=== PATIENT | male | born 1965 | race Caucasian/White ===

== ENCOUNTER → 2021-02-08 07:59 | Outpatient (CLI) | payer OTHER, SELFPAY ==
[2021-02-08 19:39] LABS: Add Manual Diff / Slide Review NO; Basophils Absolute Auto 0 /uL (0-100); Eosinophils Absolute Auto 100 /uL (0-450); Eosinophils Percent Auto 2.2 % (2-4); Hematocrit 45.8 % (41-53); Hemoglobin 15.4 g/dL (13.5-17.5); Lymphocytes Absolute Auto 1700 /uL (1100-4500); Mean Corpuscular HGB Conc 33.6 % (30-36); Mean Corpuscular Volume 95.2 fL (80-100); Monocytes Absolute Auto 500 /uL (0-900); Monocytes Percent Auto 11.2 % (3-14); Neutrophils Absolute Auto 2400 /uL (1500-7000); Neutrophils Percent Auto 50.6 % (50-75); Platelet Count 175 X10^3/uL (150-400); Red Blood Cell Count 4.81 X10^6/uL (4.5-5.9); Red Cell Distribution Width 12.7 % (11.6-14.8); White Blood Cell Count 4.8 X10^3/uL (4.5-11.0)
[2021-02-08 19:52] LABS: Alanine Aminotransferase 27 IU/L (<50); Albumin 4.4 g/dL (3.5-5.0); Albumin Globulin Ratio 1.7 (1.0-2.8); Alkaline Phosphatase 59 U/L (38-126); Aspartate Aminotransferase 37 IU/L (17-59); BUN Creatinine Ratio 16.5 (6-22); Bilirubin Total 0.8 mg/dL (0.2-1.3); Blood Urea Nitrogen 15 mg/dL (9-20); Calcium 9.7 mg/dL (8.4-10.2); Carbon Dioxide 31 mmol/L (22-32); Chloride 98 mmol/L (98-107); Cholesterol 263 mg/dL (140-199); Estimated Glomerular Filt Rate > 60.0 mL/min (>60); Globulin 2.6 g/dL (1.7-4.1); Glucose 96 mg/dL (70-100); HDL Cholesterol 70 mg/dL (40-60); HEMOLYSIS < 15 (0-50); Potassium 4.5 mmol/L (3.4-5.1); Sodium 137 mmol/L (137-145); Triglycerides 467 mg/dL (35-150)
[2021-02-08 20:21] LABS: Prostate Specific Antigen 0.964 ng/mL (0.10-4.00)
== END ==
PROVIDERS: PCP Family Medicine; Visit Provider Family Medicine
DX: I10 Essential (primary) hypertension (principal); M10.9 Gout, unspecified; N52.9 Male erectile dysfunction, unspecified
CPT/HCPCS: 80053; 80061; 84153; 84550; 85025

== ENCOUNTER → 2021-06-09 08:03 | Outpatient (CLI) | payer OTHER, SELFPAY ==
[2021-06-09 19:15] LABS: Add Manual Diff / Slide Review NO; Basophils Absolute Auto 0 /uL (0-100); Basophils Percent Auto 0.7 % (0-2); Eosinophils Absolute Auto 100 /uL (0-450); Eosinophils Percent Auto 1.9 % (2-4); Hematocrit 43.7 % (41-53); Hemoglobin 14.9 g/dL (13.5-17.5); Lymphocytes Absolute Auto 1200 /uL (1100-4500); Lymphocytes Percent Auto 26.6 % (25-40); Mean Corpuscular HGB Conc 34.2 % (30-36); Mean Corpuscular Hemoglobin 32.3 PG (26-34); Mean Corpuscular Volume 94.6 fL (80-100); Monocytes Absolute Auto 500 /uL (0-900); Monocytes Percent Auto 10.4 % (3-14); Neutrophils Absolute Auto 2600 /uL (1500-7000); Neutrophils Percent Auto 60.4 % (50-75); Platelet Count 175 X10^3/uL (150-400); Red Blood Cell Count 4.62 X10^6/uL (4.5-5.9); Red Cell Distribution Width 12.6 % (11.6-14.8); White Blood Cell Count 4.3 X10^3/uL (4.5-11.0)
[2021-06-09 19:25] LABS: Alanine Aminotransferase 30 IU/L (<50); Albumin 4.5 g/dL (3.5-5.0); Albumin Globulin Ratio 1.7 (1.0-2.8); Alkaline Phosphatase 45 U/L (38-126); Aspartate Aminotransferase 47 IU/L (17-59); BUN Creatinine Ratio 16.7 (6-22); Bilirubin Total 1.2 mg/dL (0.2-1.3); Blood Urea Nitrogen 16 mg/dL (9-20); Calcium 9.5 mg/dL (8.4-10.2); Carbon Dioxide 29 mmol/L (22-32); Chloride 100 mmol/L (98-107); Cholesterol 194 mg/dL (140-199); Estimated Glomerular Filt Rate > 60.0 mL/min (>60); Globulin 2.6 g/dL (1.7-4.1); Glucose 97 mg/dL (70-100); HDL Cholesterol 94 mg/dL (40-60); HEMOLYSIS 16 (0-50); LDL Cholesterol Calculated 77 mg/dL (<100); Potassium 4.4 mmol/L (3.4-5.1); Sodium 136 mmol/L (137-145); Total Protein 7.1 g/dL (6.3-8.2); Triglycerides 114 mg/dL (35-150); Uric Acid 5.7 mg/dL (3.5-8.5)
== END ==
PROVIDERS: PCP Family Medicine; Visit Provider Family Medicine
DX: Z00.00 Encounter for general adult medical examination without abnormal findings (principal); M10.9 Gout, unspecified; I10 Essential (primary) hypertension
CPT/HCPCS: 80053; 80061; 84550; 85025

== ENCOUNTER → 2022-01-23 14:13 | Outpatient (CLI) | payer OTHER, SELFPAY ==
[2022-01-23 16:16] LABS: COVID19 -Nasal RAPID Negative (Negative)
== END ==
PROVIDERS: PCP Family Medicine; Visit Provider Surgery
DX: Z20.822 Contact with and (suspected) exposure to COVID-19 (principal); Z01.812 Encounter for preprocedural laboratory examination
CPT/HCPCS: 87635

== ENCOUNTER 2022-01-24 10:19 | Day surgery (SDC) | payer OTHER, SELFPAY ==
[2022-01-24] VITALS (7 sets, daily range): BP systolic 115–138; BP diastolic 72–86; PULSE 54–67; RESP 13–18; TEMP 36.4–36.6; O2SAT 90–99; BMI 26.4
[2022-01-24] MEDS: LACTATED RINGERS 1,000 ML 100 ML IV (11:02)
--- NOTE | 2022-01-24 11:10 | PM.HP.1 ---
History of Present Illness History of Present Illness Date Patient Seen: 01/24/22 Time Patient Seen: 11:10 Chief complaint: [facility] [place] Narrative: 56-year-old man here for a elective open right inguinal and umbilical hernia repair. Please refer to the H&P from September 2021 for further detail. No interval changes in health. Patient History Medical History Eczema (~1989) Encounter for other administrative examinations Erectile dysfunction Gout (~1989) Plantar warts (~1979) Preventative health care Surgical History Anesthesia History of oral surgery (~01/2020) Family & Social History Family History Father Cancer History of heart disease Grandmother Cancer Grandfather History of heart disease Social History: household members significant other Tobacco & Substance use: Smoking Status Never smoker alcohol intake current alcohol intake frequency 3 or more drinks per day Substance Use Type does not use Meds Home Medications and Allergies Home Medications Medication Instructions Recorded Confirmed Type fenofibrate nanocrystallized 145 145 mg PO DAILY #90 tabs 02/10/21 09/29/21 Rx mg tablet (Tricor) losartan 25 mg tablet 25 mg PO DAILY #90 tabs 04/28/21 09/29/21 Rx allopurinol 300 mg tablet 300 mg PO DAILY #90 tabs 06/08/21 09/29/21 Rx sildenafil (pulm.hypertension) 20 20 mg PO ONCE PRN sexual activity 10/06/21 Rx mg tablet #30 tabs diazepam 10 mg tablet (Valium) 10 mg PO ONCE #1 tab 12/29/21 12/29/21 Rx acetaminophen 325 mg capsule 650 mg PO QID PRN pain #60 caps 01/24/22 Rx (Tylenol) docusate sodium 100 mg capsule 100 mg PO BID #30 caps 01/24/22 Rx (Colace) oxycodone 5 mg tablet 5 mg PO Q6H PRN pain #30 tabs 01/24/22 Rx Allergies Allergy/AdvReac Type Severity Reaction Status Date / Time indomethacin [From Tivorbex] AdvReac Mild weakness, Verified 01/24/22 10:56 shackiness Exam Vital Signs (past 8 hours): - 01/24/22 10:45 Temperature 97.5 F L Pulse Rate 54 L Respiratory Rate 18 Blood Pressure 138/86 Pulse Oximetry 99 Oxygen Delivery Method Room Air Oxygen Delivery Method Room Air Narrative Exam Narrative: General adult male alert oriented no acute distress Abdomen soft nontender nondistended. Right inguinal hernia marked with my initials. Umbilical hernia non reducible. Assessment & Plan Assessment & Plan narrative: 56-year-old man here for elective open right knee and umbilical hernia repair with mesh. However the operation was again discussed with the patient. Operative risks discussed include bleeding, infection, chronic pain, recurrence damage to surrounding structures. Questions have been answered. He he gives his verbal and written consent to proceed. Time Spent With Patient Critical Care time: I spent a total of [] minutes of critical care time on this patient's care today; this time is exclusive of procedural time.
--- NOTE | 2022-01-24 11:18 | P.OP_ITS ---
Operative Date/Time/Diagnoses Date of procedure: 01/24/22 Time of procedure: 11:18 Pre-op diagnosis: Right inguinal and umbilical hernia Post-op diagnosis: same Procedure & Clinicians Procedure: Open right inguinal hernia repair with mesh Umbilical hernia repair with mesh Same procedure as scheduled: Yes Indications: Symptomatic right inguinal and umbilical hernia Surgeon: Mookie Smith Yes if Unassisted: Yes Anesthesia Type: General Operative Notes Findings: 2 cm umbilical defect containing omentum right inguinal-direct floor defect small cord lipoma no indirect hernia Specimen(s): none sent Estimated Blood Loss (mL): 20 Procedure in detail: The patient was placed supine on the table and bilateral lower extremity compression devices were applied. Anesthesia was induced they were intubated with an LMA and received Ancef. A time-out was performed. They were prepped and draped in sterile fashion. The right external inguinal ring and the anterior superior iliac crest were identified and marked. 1 finger breath above the inguinal ligament the skin was infiltrated with 0.25% bupivacaine. The skin incision was made, the subcutaneous tissues were divided with electrocautery exposing the external oblique aponeurosis which was then opened along the direction of its fibers. Using blunt dissection the internal oblique aporneurosis was from the external oblique upper leaflet. The cord was carefully dissected away from the inguinal canal adjacent to the pubic tuber oyl. The cord including the vas deferens, testicular bloody supply, ilioguinal and genital nerve were encircled with a [place] drain. A direct floor defect was identified and it was reduced into the abdomen and the internal oblique aporneuorsis was approximated to the inguinal ligament with Ethibond suture to reapproximate the floor.. The cremasteric fibers surrounding the cord were divided adjacent to the internal ring. The vas deferens and the testicular vessels were preserved and protected. The cord contents were carefully explored. There was a small cord lipoma which was resected. There was no indirect hernia. A 7x 15 cm lightweight Bard Pro Loop hernia mesh was anchored to the insertion of the rectus muscle at the pubic tubercle such that there was approximately 2 cm of tubercle overlap with Ethibond. The inferior edge of the mesh was secured to the shelving edge of the inguinal ligament using Ethibond. Interrupted 3 0 Vicryl suture was used to anchor the superior aspect of the mesh to the conjoined tendon in several places. The tails were then reapproximated loosely around the spermatic cord. The tails of the mesh were then tucked under the external oblique aponeurosis. The repair was checked for hemostasis. The wound was irrigated with sterile saline. The external oblique aponeurosis was reapproximated in a running fashion using 3 0 Vicryl. The subcutaneous tissues were reapproximated with 3 0 Vicryl skin closed with 4 0 Monocryl followed by the application of Dermabond. A curvilinear incision was made inferior to the umbilicus. The subcutaneous tissues were divided. The umbilical hernia was identified and the hernia sac was dissected off the umbilical skin and circumferentially off of the fascia defect. The hernia sac was sharply opened and contained viable omentum. The omentum was reduced back into the abdomen. Using blunt dissection I carefully carefully freed the hernia sac from beneath the fascia defect in order to accomodate the mesh. The fascia defect was 2 cm in maximal diameter. A Bard Ventralex ST hernia patch 4 cm was inserted beneath the fascia defect and above the peritoneum in a sublay position. The mesh was anchored in multiple locations using Ethibond suture to the fascia and the fascial defect was closed over the mesh. The umbilical skin was tacked to the subcutaneous tissues and then the remainder of the subcutaneous tissues were reapproximated using 3 0 Vicry,l skin closed with 4 0 Monocryl followed by the application of Dermabond and Steri- Strips. Sponge instrument count at the end of the operation was correct. Patient tolerated procedure well was extubated and transferred to postoperative care unit in stable condition. Complications: none Post-operative Condition: stable Disposition: same day surgery
[2022-01-24] MEDS: CEFAZOLIN 2 GM/100 ML PREMIX 100 ML IV (11:29)
--- NOTE | 2022-01-24 11:41 | SUR.OPER ---
Supine on padded OR bed, head on pillow, arms secured on padded arm boards at <90 degrees abduction, legs uncrossed, safety belt at thigh.
[2022-01-24] MEDS: BUPIVACAINE 0.25% (PF) VIAL 30 ML INJ (11:52)
[2022-01-24] MEDS: OXYCODONE/ACETAMINOPHEN 5/325 TABLET 1 TAB PO (13:41)
== END 2022-01-24 14:00 | disposition home or self-care (01) ==
PROVIDERS: PCP Family Medicine; Referring Provider Surgery; Visit Provider Surgery
PROC: (CPT 49505; principal; 2022-01-24 11:45)
PROC: (CPT 49505; 2022-01-24 11:45)
DX: K40.90 Unilateral inguinal hernia, without obstruction or gangrene, not specified as recurrent (principal); K42.9 Umbilical hernia without obstruction or gangrene; D17.6 Benign lipomatous neoplasm of spermatic cord
CPT/HCPCS: 49505; 49585; J0690; J1100; J1885; J2250; J2405; J2704; J3010

== ENCOUNTER → 2022-03-15 09:01 | Outpatient (CLI) | payer OTHER, SELFPAY ==
[2022-03-15 10:20] LABS: Alanine Aminotransferase 26 IU/L (<50); Albumin 4.5 g/dL (3.5-5.0); Albumin Globulin Ratio 1.7 (1.0-2.8); Alkaline Phosphatase 42 U/L (38-126); Aspartate Aminotransferase 31 IU/L (17-59); BUN Creatinine Ratio 17.9 (6-22); Bilirubin Total 0.9 mg/dL (0.2-1.3); Blood Urea Nitrogen 19 mg/dL (9-20); Calcium 9.6 mg/dL (8.4-10.2); Carbon Dioxide 27 mmol/L (22-32); Chloride 101 mmol/L (98-107); Cholesterol 201 mg/dL (140-199); Estimated Glomerular Filt Rate > 60 mL/min (>60); Globulin 2.6 g/dL (1.7-4.1); Glucose 94 mg/dL (70-100); HDL Cholesterol 94 mg/dL (40-60); HEMOLYSIS < 15 (0-50); LDL Cholesterol Calculated 90 mg/dL (<100); Potassium 4.8 mmol/L (3.4-5.1); Sodium 135 mmol/L (137-145); Total Protein 7.1 g/dL (6.3-8.2); Triglycerides 87 mg/dL (35-150)
== END ==
PROVIDERS: PCP Family Medicine; Referring Provider Family Medicine; Visit Provider Family Medicine
DX: I10 Essential (primary) hypertension (principal); Z00.00 Encounter for general adult medical examination without abnormal findings
CPT/HCPCS: 36415; 80053; 80061

== ENCOUNTER → 2022-07-26 09:18 | Outpatient (CLI) | payer OTHER, SELFPAY ==
[2022-07-26 19:40] LABS: Alanine Aminotransferase 39 IU/L (<50); Albumin 4.4 g/dL (3.5-5.0); Albumin Globulin Ratio 1.8 (1.0-2.8); Alkaline Phosphatase 50 U/L (38-126); Aspartate Aminotransferase 51 IU/L (17-59); BUN Creatinine Ratio 16.3 (6-22); Bilirubin Total 0.9 mg/dL (0.2-1.3); Blood Urea Nitrogen 17 mg/dL (9-20); Calcium 9.6 mg/dL (8.4-10.2); Carbon Dioxide 28 mmol/L (22-32); Chloride 102 mmol/L (98-107); Cholesterol 191 mg/dL (140-199); Estimated Glomerular Filt Rate > 60 mL/min (>60); Globulin 2.4 g/dL (1.7-4.1); Glucose 101 mg/dL (70-100); HDL Cholesterol 93 mg/dL (40-60); HEMOLYSIS < 15 (0-50); LDL Cholesterol Calculated 82 mg/dL (<100); Potassium 4.2 mmol/L (3.4-5.1); Sodium 136 mmol/L (137-145); Total Protein 6.8 g/dL (6.3-8.2); Triglycerides 80 mg/dL (35-150); Uric Acid 4.3 mg/dL (3.5-8.5)
[2022-07-26 19:41] LABS: Add Manual Diff / Slide Review NO; Basophils Absolute Auto 0 /uL (0-100); Basophils Percent Auto 0.7 % (0-2); Eosinophils Absolute Auto 100 /uL (0-450); Eosinophils Percent Auto 1.7 % (2-4); Hematocrit 43.4 % (41-53); Hemoglobin 14.8 g/dL (13.5-17.5); Lymphocytes Absolute Auto 1200 /uL (1100-4500); Lymphocytes Percent Auto 30.1 % (25-40); Mean Corpuscular HGB Conc 34.1 % (30-36); Mean Corpuscular Hemoglobin 31.9 PG (26-34); Mean Corpuscular Volume 93.7 fL (80-100); Monocytes Absolute Auto 500 /uL (0-900); Monocytes Percent Auto 11.9 % (3-14); Neutrophils Absolute Auto 2200 /uL (1500-7000); Neutrophils Percent Auto 55.6 % (50-75); Platelet Count 184 X10^3/uL (150-400); Red Blood Cell Count 4.63 X10^6/uL (4.5-5.9); Red Cell Distribution Width 13.2 % (11.6-14.8)
[2022-07-26 20:13] LABS: Prostate Specific Antigen 0.821 ng/mL (0.10-4.00)
== END ==
PROVIDERS: PCP Family Medicine; Visit Provider Family Medicine
DX: E78.1 Pure hyperglyceridemia (principal); I10 Essential (primary) hypertension; M1A.09X0 Idiopathic chronic gout, multiple sites, without tophus (tophi)
CPT/HCPCS: 80053; 80061; 84153; 84550; 85025

== ENCOUNTER 2022-10-05 09:01 | Day surgery (SDC) | payer OTHER, SELFPAY ==
--- NOTE | 2022-10-05 | PATH_ITS ---
[facility] Accession Number: [id number] No. of containers..02 Tissue . 01 Material submitted: . PART A: colon - ASCENDING POLYP PART B: colon - TRANSVERSE POLYP . 01 Diagnosis: A. Ascending Colon, Polyp: Tubular adenoma. . B. Transverse Colon, Polyp: Tubular adenoma. [facility] 10/15/2022 1133 Local . 01 Electronically signed: . Mariah Alfaro MD, Pathologist NPI- [id number] . 01 Gross description: . Part A: ASCENDING POLYP: Received in formalin is 1 fragment(s) of lovett, soft tissue measuring 0.4 x 0.3 x 0.2 cm submitted entirely in 1 cassette(s) Part B: TRANSVERSE POLYP: Received in formalin are 3 fragment(s) of lovett, soft tissue measuring 0.1 x 0.1 x 0.1 cm to 0.3 x 0.1 x 0.1 cm submitted entirely in 1 cassette(s) /[facility] 10/11/2022 0105 Local . 01 Pathologist provided ICD-10: D12.2, D12.3 . 01 CPT . 527216, 256877 Specimen Comment: A courtesy copy of this report has been sent to [facility] Pathology Performed at: 01 [facility] [address], [place], [place] [id number] MD Edilson Mcclure MD Phone: [phone]
[2022-10-05 09:19] VITALS: BP 145/81; PULSE 55; RESP 16; TEMP 36.3; O2SAT 99; BMI 27.0
[2022-10-05] MEDS: LACTATED RINGERS 1,000 ML 42 ML IV (09:34)
--- NOTE | 2022-10-05 10:52 | PM.HP.1 ---
History of Present Illness History of Present Illness Date Patient Seen: 10/05/22 Time Patient Seen: 10:53 [place] complaint[place] [facility] [place]ative: 57-year-old male presents today for a screening colonoscopy. His maternal grandfather mother did in her 70s of colon cancer. Has had a colonoscopy previously at age of approximately 36 years because of bleeding. The determination was that the bleeding was from an internal hemorrhoid which she still has. He notes that this hemorrhoid seems to ?flare up? when he ?eats poorly? for him flaring up generally entail some bleeding with spotting and blood on the toilet paper. He has noted some increase in episodes of diarrhea in the last year he wonders if he is developing an allergy to eggs. Mother has this allergy and when she eats eggs she also has diarrhea. He notices that these episodes do tend to correlate with the morning and often seem to have some relationship with his consumption. Overall he has no questions or concerns and would like to proceed with a screening colonoscopy today [facility] Medical History Eczema (~1989) Encounter for other administrative examinations Erectile dysfunction Gout (~1989) Hypertriglyceridemia Plantar warts (~1979) Preventative health care Well adult exam Surgical History Anesthesia History of oral surgery (~01/2020) Family History Father Cancer History of heart disease Grandmother Cancer Grandfather History of heart disease Social History household members: significant other Smoking Status: Never smoker alcohol intake: current Meds Home Medications and Allergies Home Medications Medication Instructions Recorded Confirmed Type sildenafil (pulm.hypertension) 20 20 mg PO ONCE PRN sexual activity 03/06/22 10/05/22 Rx mg tablet #30 tabs fenofibrate nanocrystallized 145 145 mg PO DAILY #90 tabs 03/14/22 10/05/22 Rx mg tablet (Tricor) allopurinol 300 mg tablet 300 mg PO DAILY #90 tabs 03/20/22 10/05/22 Rx losartan 50 mg tablet 50 mg PO DAILY #90 tabs 04/16/22 10/05/22 Rx Allergies Allergy/AdvReac Type Severity Reaction Status Date / Time indomethacin [From Tivorbex] AdvReac Mild weakness, Verified 10/05/22 09:16 shackiness Exam Vital Signs (past 8 hours): - 10/05/22 09:19 Temperature 97.3 F L Pulse Rate 55 L Respiratory Rate 16 Blood Pressure 145/81 H Pulse Oximetry 99 Oxygen Delivery Method Room Air Oxygen Delivery Method Room Air Const General: cooperative, healthy appearing and comfortable Nutritional Appearance: overweight Orientation: alert, awake and oriented x3 HENMT Head: normal to inspection Eyes General: appearance normal, both eyes and all related structures Chest Chest: normal inspection of the chest and normal palpation of entire chest wall Resp Effort & Inspection: normal respiratory effort and able to speak in complete sentences Cardio Pulses: radial pulses present GI Palpation: soft and No tender Assessment & Plan Assessment and plan (1) Family history of colon cancer: Status: Acute Assessment & Plan narrative: Presents today for screening colonoscopy I discussed the risks benefits and alternatives including but not limited to perforation of the colon and an incomplete exam he fully understands these risks and would like to proceed.
[2022-10-05 11:27] VITALS: BP 115/76; PULSE 93; RESP 15; TEMP 37.1; O2SAT 93
[2022-10-05 11:32] VITALS: BP 132/79; PULSE 78; RESP 16; O2SAT 95
[2022-10-05 11:38] VITALS: BP 118/81; PULSE 73; RESP 14; O2SAT 95
--- NOTE | 2022-10-05 11:43 | P.OP.COLON_ITS ---
Operative Date/Time/Diagnoses Date of procedure: 10/05/22 Time of procedure: 11:44 Pre-op diagnosis: Colon cancer screening. Maternal grandmother from colon cancer in her 70s. Bleeding from internal hemorrhoid in the history Post-op diagnosis: same Procedure & Clinicians Study performed: Colonoscopy and biopsy Same procedure as scheduled: Yes Indications: Colon cancer screening. Maternal grandmother from colon cancer in her 70s. Bleeding from internal hemorrhoid in the history Surgeon: Carmela Riggins Procedure Notes Procedure in detail: Patient was taken to the endoscopy suite and placed in a left lateral decubitus position. A time-out was performed. With the help of anesthesiologist conscious sedation was induced and monitored throughout the case. A digital rectal exam was performed and there were no masses or strictures. The colonoscope was introduced into the anal canal and advanced through to the cecum. A photograph of the appendiceal orifice was obtained. The bowel prep was good [place] bowel prep score of 2. There were a lot of gas bubbles which were cleared with water, and the exam was good. The scope was then withdrawn for a total of 12 minutes and there was 1 small polyp in the ascending colon th at was photographed and removed with the biopsy forceps there was an additional small polyp in the transverse colon which was removed with the biopsy forceps and photographed as well. The scope was then retroflexed and a photograph of the internal hemorrhoidal piles was obtained. There was 1 internal hemorrhoid pile that had sort of prominent appearance. There were a few scattered sigmoid diverticula within normal limits. Specimen(s): other (1. Ascending colon polyp 2. Transverse colon polyp) Post-procedure Plan for aftercare: With a family history of colon cancer I recommend a 5 year follow-up exam. I do recommend a fiber supplement especially given the history of hemorrhoids as well as the polyps that were seen today.
[2022-10-05 11:45] VITALS: BP 119/83; PULSE 68; RESP 14; O2SAT 98
== END 2022-10-05 12:00 | disposition home or self-care (01) ==
PROVIDERS: PCP Family Medicine; Referring Provider Surgery; Visit Provider Surgery
PROC: 0DJD8ZZ Inspection of Lower Intestinal Tract, Via Natural or Artificial Opening Endoscopic (ICD-10-PCS; CPT 45378; principal; 2022-10-05 10:00)
DX: Z12.11 Encounter for screening for malignant neoplasm of colon (principal); K64.0 First degree hemorrhoids; K57.30 Diverticulosis of large intestine without perforation or abscess without bleeding; D12.2 Benign neoplasm of ascending colon; D12.3 Benign neoplasm of transverse colon
CPT/HCPCS: 45380; J2704

== ENCOUNTER → 2023-01-02 10:40 | Outpatient (CLI) | payer OTHER, SELFPAY ==
--- NOTE | 2023-01-03 01:44 | DI.NM.S_ITS ---
DATE OF SERVICE: 01/02/2023 PROCEDURE PERFORMED: Exercise treadmill stress and rest myocardial perfusion imaging with gating to assess ejection fraction and regional wall motion. ORDERING PROVIDER: Dr. Esa Tamayo. INDICATIONS: The patient is a 57-year-old male with paroxysmal tachycardia and arm pain. CARDIAC STRESS: The patient was able to exercise for 8 minutes and 1 second on a standard Daniele protocol suggesting mildly impaired exercise capacity with an CHARLEE of +14%. He had a normal heart rate and blood pressure response to exercise, achieving a maximum heart rate of 166 BPM (101% of his predicted maximum). He had no chest discomfort or other anginal symptoms. His resting ECG is normal and there are no significant ST-segment shifts or arrhythmias with stress. At 6 minutes and 35 seconds of exercise at a heart rate of 160 BPM, 25.4 millicuries of technetium-99m Myoview was injected and he was imaged 15 minutes later using a gated SPECT acquisition protocol. Earlier in the day while at rest, he had been injected with 11.7 millicuries of technetium-99m Myoview and was imaged 15 minutes later, again using a gated SPECT acquisition protocol. FINDINGS: 1. Raw data: There is fair myocardial tracer uptake but with mild subdiaphragmatic tracer activity noted on the resting images adjacent to the inferior wall that affect the interpretation. The lung/heart ratio is normal at 0.34 with a normal TID ratio of 0.71. 2. Quantitated gated SPECT: Post-stress ejection fraction is estimated at 71% without any focal wall motion abnormality and specifically the inferior wall appears to have normal contractility. The resting ejection fraction is estimated at 65% although visually appears quite similar to that of the post-stress images. The resting end-diastolic volume is mildly increased at 137 mL. 3. Myocardial perfusion imaging: Post-stress supine images show a mild perfusion defect throughout the inferior wall in a pattern that would be consistent with diaphragmatic attenuation, supported by its resolution on the prone images. The resting images are somewhat corrupted by subdiaphragmatic tracer activity adjacent to the inferior wall but the inferior defect remains present, likely unchanged. IMPRESSION: 1. Probable normal myocardial perfusion study. 2. Predominantly fixed inferior wall perfusion defect that resolves on prone imaging, most consistent with diaphragmatic attenuation. There is no compelling evidence for any significant myocardial ischemia or infarction. 3. Normal left ventricular systolic function with mildly increased left ventricular volumes. 4. Mildly reduced exercise capacity without angina or ECG evidence of ischemia. No arrhythmias were seen. Ovidio Leonard - RIVKA/jim/CAROLIN doc#: [id number]/job#: [id number] dd: 01/02/2023 16:19:00 dt: 01/03/2023 01:30:00 DICTATING MD/COPIES TO: Esa Horn MD; Esa Tamayo MD COPIES MNE: JAMILAH;
== END ==
PROVIDERS: PCP Family Medicine; Referring Provider Family Medicine; Visit Provider Family Medicine
DX: I47.9 Paroxysmal tachycardia, unspecified (principal)
CPT/HCPCS: 78452; 93017; A9502

== ENCOUNTER → 2023-07-02 09:05 | Outpatient (CLI) | payer OTHER, SELFPAY ==
[2023-07-02 19:17] LABS: Add Manual Diff / Slide Review NO; Basophils Absolute Auto 0 /uL (0-100); Basophils Percent Auto 0.5 % (0-2); Eosinophils Absolute Auto 100 /uL (0-450); Eosinophils Percent Auto 1.5 % (2-4); Hematocrit 38.3 % (41-53); Hemoglobin 13.2 g/dL (13.5-17.5); Lymphocytes Absolute Auto 1200 /uL (1100-4500); Lymphocytes Percent Auto 15.2 % (25-40); Mean Corpuscular HGB Conc 34.3 % (30-36); Mean Corpuscular Hemoglobin 32.1 PG (26-34); Mean Corpuscular Volume 93.5 fL (80-100); Monocytes Absolute Auto 700 /uL (0-900); Monocytes Percent Auto 8.9 % (3-14); Neutrophils Absolute Auto 5600 /uL (1500-7000); Neutrophils Percent Auto 73.9 % (50-75); Platelet Count 277 X10^3/uL (150-400); Red Cell Distribution Width 12.4 % (11.6-14.8); White Blood Cell Count 7.6 X10^3/uL (4.5-11.0)
[2023-07-02 19:25] LABS: Alanine Aminotransferase 22 IU/L (<50); Albumin 4.3 g/dL (3.5-5.0); Albumin Globulin Ratio 1.9 (1.0-2.8); Alkaline Phosphatase 49 U/L (38-126); Aspartate Aminotransferase 35 IU/L (17-59); Bilirubin Total 0.8 mg/dL (0.2-1.3); Blood Urea Nitrogen 14 mg/dL (9-20); Calcium 9.8 mg/dL (8.4-10.2); Carbon Dioxide 27 mmol/L (22-32); Chloride 101 mmol/L (98-107); Cholesterol 178 mg/dL (140-199); Estimated Glomerular Filt Rate > 60 mL/min (>60); Globulin 2.3 g/dL (1.7-4.1); Glucose 97 mg/dL (70-100); HDL Cholesterol 68 mg/dL (40-60); HEMOLYSIS < 15 (0-50); LDL Cholesterol Calculated 93 mg/dL (<100); Potassium 4.2 mmol/L (3.4-5.1); Sodium 135 mmol/L (137-145); Total Protein 6.6 g/dL (6.3-8.2); Triglycerides 84 mg/dL (35-150)
[2023-07-02 19:26] LABS: Troponin I < 0.012 ng/mL (0.01-0.034)
[2023-07-02 19:52] LABS: TSH w/ Reflex to FT4 0.81 uIU/mL (0.47-4.68)
== END ==
PROVIDERS: PCP Family Medicine; Visit Provider Family Medicine
DX: I47.9 Paroxysmal tachycardia, unspecified (principal); E78.1 Pure hyperglyceridemia; I10 Essential (primary) hypertension
CPT/HCPCS: 80053; 80061; 84443; 84484; 85025

== ENCOUNTER → 2023-11-11 09:55 | Outpatient (CLI) | payer BC, SELFPAY ==
[2023-11-11 20:23] LABS: Reticulocyte Count, Percent 1.7 % (0.9-2.6)
[2023-11-11 20:30] LABS: Add Manual Diff / Slide Review NO; Basophils Absolute Auto 0 /uL (0-100); Basophils Percent Auto 0.8 % (0-2); Eosinophils Absolute Auto 100 /uL (0-450); Eosinophils Percent Auto 1.4 % (2-4); Hematocrit 41.4 % (41-53); Lymphocytes Absolute Auto 800 /uL (1100-4500); Mean Corpuscular HGB Conc 33.8 % (30-36); Mean Corpuscular Hemoglobin 31.6 PG (26-34); Mean Corpuscular Volume 93.6 fL (80-100); Monocytes Absolute Auto 300 /uL (0-900); Monocytes Percent Auto 5.6 % (3-14); Neutrophils Absolute Auto 4700 /uL (1500-7000); Neutrophils Percent Auto 78.2 % (50-75); Platelet Count 282 X10^3/uL (150-400); Red Blood Cell Count 4.42 X10^6/uL (4.5-5.9); Red Cell Distribution Width 12.6 % (11.6-14.8); White Blood Cell Count 6.1 X10^3/uL (4.5-11.0)
[2023-11-11 20:34] LABS: HEMOLYSIS < 15 (0-50); Iron 58 ug/dL (49-181)
[2023-11-11 20:43] LABS: Alanine Aminotransferase 13 IU/L (<50); Albumin 3.9 g/dL (3.5-5.0); Albumin Globulin Ratio 1.4 (1.0-2.8); Alkaline Phosphatase 51 U/L (38-126); Aspartate Aminotransferase 26 IU/L (17-59); BUN Creatinine Ratio 15.1 (6-22); Bilirubin Total 0.8 mg/dL (0.2-1.3); Blood Urea Nitrogen 16 mg/dL (9-20); C-Reactive Protein Quant 7.7 mg/dL (<1.0); Carbon Dioxide 27 mmol/L (22-32); Chloride 103 mmol/L (98-107); Cholesterol 146 mg/dL (140-199); Estimated Glomerular Filt Rate > 60 mL/min (>60); Globulin 2.7 g/dL (1.7-4.1); Glucose 108 mg/dL (70-100); HDL Cholesterol 78 mg/dL (40-60); HEMOLYSIS 25 (0-50); LDL Cholesterol Calculated 53 mg/dL (<100); Phosphorous 3.3 mg/dL (2.5-4.5); Potassium 4.2 mmol/L (3.4-5.1); Sodium 137 mmol/L (137-145); Total Protein 6.6 g/dL (6.3-8.2); Transferrin 228 mg/dL (206-381); Triglycerides 73 mg/dL (35-150)
[2023-11-11 20:54] LABS: Percent Iron Saturation 20 % (20-50); Total Iron Binding Capacity 287 ug/dL (261-462)
[2023-11-11 21:13] LABS: Cortisol Random 12.9 ug/dL; Prostate Specific Antigen Scrn 1.37 ng/mL (0.1-4.0)
[2023-11-11 21:17] LABS: Ferritin 272 ng/mL (18-464); Testosterone 288 ng/dL (71.8-623)
[2023-11-11 21:26] LABS: Vitamin B12 334 pg/mL (239-931)
[2023-11-11 21:41] LABS: Erythrocyte Sedimentation Rate 32 MM/HR (0-15)
== END ==
PROVIDERS: PCP Family Medicine; Visit Provider Family Medicine
DX: S22.000A Wedge compression fracture of unspecified thoracic vertebra, initial encounter for closed fracture (principal); D64.9 Anemia, unspecified; E78.1 Pure hyperglyceridemia; I10 Essential (primary) hypertension; Z12.5 Encounter for screening for malignant neoplasm of prostate
CPT/HCPCS: 80053; 80061; 82306; 82310; 82533; 82607; 82728; 82784; 83540; 83550; 83970; 84100; 84155; 84165; 84403; 84443; 85025; 85045; 85651; 86140; 86334; G0103

== ENCOUNTER → 2023-11-14 10:54 | Outpatient (CLI) | payer BC, SELFPAY ==
--- NOTE | 2023-11-14 10:57 | DI.MRI.S_ITS ---
PROCEDURE: MR THORACIC SPINE WO/W CON INDICATIONS: compression fractures thoracic spine -- eval for mets, infec TECHNIQUE: Noncontrast sagittal T1 spin echo and T2 fast spin echo, sagittal STIR, axial T1 and T2 fast spin echo through the thoracic spine. After the administration of contrast, axial and sagittal T1 spin echo with fat saturation through the thoracic spine. COMPARISON: [facility] ([place]), CR, XR CHEST 2V, 11/05/2023, 14:03. FINDINGS: Image quality: Excellent. Alignment and curvature: There is normal bony alignment. Marrow: Hemangioma in the T12 vertebral body. Anterior wedging of the T7, T8, T9 and T10 vertebral bodies which could be physiologic or related to chronic mild anterior column compression fractures. No acute vertebral body compression fractures. Spinal cord: Visualized spinal cord is of normal signal and size, without abnormal enhancement. Paraspinous soft tissues: No paravertebral masses or abnormal enhancement. Moderate-sized right pleural effusion. Partially visualized right renal cyst. Miscellaneous: Mild degenerative disc changes and facet arthropathy throughout the thoracic spine. No severe central canal stenosis. No severe neural foraminal narrowing. No neural compression. IMPRESSION: No acute vertebral body compression fracture. No evidence of metastatic disease. No evidence of discitis-osteomyelitis. Moderate-sized right pleural effusion. Dictated by: Fany Castillo MD, PhD on 11/14/2023 at 12:41 Approved by: Fany Castillo MD, PhD on 11/14/2023 at 12:48
--- NOTE | 2023-11-14 10:57 | DI.MRI.S_ITS ---
PROCEDURE: MR LUMBAR SPINE WO/W CON INDICATIONS: compression fractures thoracic spine -- eval for mets, infec TECHNIQUE: Noncontrast sagittal T1 spin echo and T2 fast spin echo, sagittal STIR, axial T1 and T2 fast spin echo through the lumbar spine. In cases with scoliosis, additional coronal T2 fast spin echo may be performed. After the administration of contrast, sagittal and axial T1 spin echo with fat saturation through the lumbar spine. COMPARISON: None. FINDINGS: Image quality: Excellent. Alignment and curvature: There is mild, approximately 7 millimeters of L5-S1 anterolisthesis secondary to L5 pars interarticularis defects. Marrow: Modic type 2 reactive endplate changes adjacent to the L5-S1 disc. Hemangioma in the T12 vertebral body. No acute vertebral body compression fractures. No suspicious marrow enhancement. Spinal cord: Conus medullaris terminates at the L1 level. Visualized spinal cord demonstrates normal signal, without suspicious enhancement. Paraspinous soft tissues: No paravertebral masses or abnormal enhancement. T12-L1: Normal appearance. L1-L2: Normal appearance. L2-L3: Normal appearance. L3-L4: Normal appearance. L4-L5: Normal appearance. L5-S1: Loss of disc signal and slight loss of disc height. Mild, diffuse disc bulge. [id number] bilateral facet hypertrophy. No central stenosis. Mild bilateral neural foraminal narrowing. No neural compression. Posterior disc annulus fissures. IMPRESSION: No vertebral body compression fracture. No discitis-osteomyelitis. No evidence of metastatic disease. Grade 1 L5-S1 isthmic spondylolisthesis. L5-S1 degenerative disc disease and facet arthropathy. Dictated by: Fany Castillo MD, PhD on 11/14/2023 at 12:48 Approved by: Fany Castillo MD, PhD on 11/14/2023 at 12:52
== END ==
LOC: MRI 10:56
PROVIDERS: PCP Family Medicine; Referring Provider Family Medicine; Visit Provider Family Medicine
DX: S22.000A Wedge compression fracture of unspecified thoracic vertebra, initial encounter for closed fracture (principal); J90 Pleural effusion, not elsewhere classified; M43.17 Spondylolisthesis, lumbosacral region; M54.14 Radiculopathy, thoracic region; M51.37 Other intervertebral disc degeneration, lumbosacral region; M47.817 Spondylosis without myelopathy or radiculopathy, lumbosacral region; N28.1 Cyst of kidney, acquired; R07.81 Pleurodynia; D64.9 Anemia, unspecified
CPT/HCPCS: 72157; 72158; A9579

== ENCOUNTER → 2023-11-19 15:33 | Outpatient (CLI) | payer BC, SELFPAY ==
--- NOTE | 2023-11-19 15:34 | DI.CT.S_ITS ---
PROCEDURE: CT CHEST W CON INDICATIONS: Pleural effusion d/t odonnell for R-sided chest pain. CRP 7.7 TECHNIQUE: After the administration of intravenous contrast, 5 mm thick sections acquired from the pulmonary apices to the posterior costophrenic angles. 1 mm axial lung, 5 mm thick coronal and sagittal reformats and 7 mm axial MIP were acquired. For radiation dose reduction, the following was used: automated exposure control, adjustment of mA and/or kV according to patient size. COMPARISON: None. FINDINGS: Moderate right pleural effusion with associated compressive atelectatic changes right lower lobe posterior medial, lateral greater than anterior basal. Cannot exclude underlying pneumonia consolidation. Mild calcifications of the coronary arteries. Moderate degenerate changes of the of thoracic spine with exaggerated kyphosis, decreased height and anterior wedging most notably at T6-T10. Right renal cyst partially imaged measures at least 4 cm diameter. No pneumothorax. Heart size is normal. No pericardial effusion. The aorta and pulmonary arteries demonstrate normal size. No enlarged lymph nodes. No wall thickening. No hiatal hernia. Visualized upper abdomen solid organs and bowel loops appear normal. Image quality: Diagnostic. IMPRESSION: Moderate right pleural effusion with associated compressive atelectatic changes right lower lobe. Cannot exclude underlying pneumonia. Continued follow-up suggested. Mild calcifications of the coronary arteries. Dictated by: Esequiel Hightower M.D. on 11/19/2023 at 16:34 Approved by: Esequiel Hightower M.D. on 11/19/2023 at 16:46
== END ==
PROVIDERS: PCP Family Medicine; Referring Provider Family Medicine; Visit Provider Family Medicine
DX: R07.89 Other chest pain (principal); J90 Pleural effusion, not elsewhere classified; I25.10 Atherosclerotic heart disease of native coronary artery without angina pectoris; R79.82 Elevated C-reactive protein (CRP); M47.814 Spondylosis without myelopathy or radiculopathy, thoracic region; N28.1 Cyst of kidney, acquired
CPT/HCPCS: 71260; Q9967

== ENCOUNTER 2023-11-27 08:17 | Outpatient (CLI) | payer BC, SELFPAY ==
--- NOTE | 2023-11-27 | DI.US.S_ITS ---
PROCEDURE: US THORACENTESIS INDICATIONS: Pleural effusion TECHNIQUE: The indications, alternatives, benefits, risks, and complications of the procedure were explained to the patient. Written informed consent was obtained and placed in the chart. The chest was examined sonographically, and an appropriate site was chosen for thoracentesis. The skin was prepared and draped in the usual sterile fashion, and 1% lidocaine was infiltrated from the skin down through the pleural surface. A 19-gauge catheter-covered needle was then introduced into the pleural space, the catheter was advanced and the needle was withdrawn, and thereafter pleural fluid was aspirated. The catheter was then removed and a dressing was applied. COMPARISON: None. FINDINGS: Access site: Right hemithorax. Needle: One-Step centesis catheter with introducer needle. Fluid volume and description: 180 cc of dark red colored fluid. Fluid sent for diagnostic testing: Sent according to physician orders. Medications: 1% lidocaine for local anaesthesia. Complications: None; post-procedural chest radiograph is pending to assess for pneumothorax. IMPRESSION: Successful ultrasound-guided thoracentesis. Dictated by: Robin Kamara M.D. on 11/27/2023 at 11:06 Approved by: Robin Kamara M.D. on 11/27/2023 at 11:06
--- NOTE | 2023-11-27 | DI.RAD.S_ITS ---
PROCEDURE: XR CHEST 1V INDICATIONS: post thoracentisis TECHNIQUE: One view of the chest was acquired. COMPARISON: [facility] ([facility]), CR, XR CHEST 2V, 11/05/2023, 14:03. FINDINGS: Surgical changes and devices: None. Lungs and pleura: Small amount of residual right pleural effusion. Left lung is clear. No pneumothorax. No definite focal infiltrate. Mediastinum: Mediastinal contours appear normal. Heart size is normal. Bones and chest wall: No suspicious bony lesions. Overlying soft tissues appear unremarkable. IMPRESSION: Small residual right pleural effusion. No gross pneumothorax post right thoracentesis. Dictated by: Robin Kamara M.D. on 11/27/2023 at 11:10 Approved by: Robin Kamara M.D. on 11/27/2023 at 11:10
[2023-11-27 08:35] VITALS: BP 124/76; PULSE 77; RESP 18; TEMP 36.8; O2SAT 93
[2023-11-27 09:08] VITALS: BP 102/60; PULSE 68; RESP 18; O2SAT 95
--- NOTE | 2023-11-27 09:15 | PATH_ITS ---
Note [facility] Accession Number: [id number] TESTS RESULT FLAG UNITS REF RANGE LAB Clinician Provided Cytology Information No. of containers..02 Other (Miscellaneous) Source: RIGHT PLEURAL FLUID DIAGNOSIS: RIGHT PLEURAL FLUID, THORACENTESIS. INCONCLUSIVE. FEW GROUPS OF ATYPICAL EPITHELIOID CELLS ARE PRESENT. THE DIFFERENTIAL DIAGNOSIS INCLUDES REACTIVE-TYPE MESOTHELIAL ATYPIA, VERSUS A NEOPLASTIC PROCESS. FURTHER CHARACTERIZATION IS PENDING IMMUNOHISTOCHEMICAL WORK-UP. THE FINAL DIAGNOSIS WILL BE REFLECTED IN THE ADDENDUM REPORT. THIS INTERPRETATION INCLUDES EVALUATION OF A CELL BLOCK. Pathologist ICD10: 01 J90 Signed out by: Kaz Light MD, Pathologist NPI- [id number] Performed by: Oliver Weaver, Faculty Neuropsychologist ([facility]) Gross description: 45 CC, ORAGNE, RAFAEL RECIEVED: IN CYTOLYT WITH BLUE CAP CONTAINER AND FRESH IN WHITE CAP TUBE. VO /VDU 11/28/2023 0744 Local FLAG LEGEND: L-Low Normal,H-High Normal,LL-Alert Low,HH-Alert High <-Panic Low,>-Panic High,A-Abnormal,AA-Critical Abnormal Performed at: 01 =Z [facility], [place] [address] Edilson Mcclure MD, Performed at: [facility], [place], [place] [id number] MD Edilson Mcclure MD Phone: [phone]
--- NOTE | 2023-11-27 09:32 | PC.NURSE ---
Patient sitting on the side of the stretcher with arms on pillow on patient bedside table for thoracentesis.
[2023-11-27 10:14] LABS: Body Fluid Red Blood Cells 15690 /uL; Body Fluid Tot Nucleated Cells 6656 /uL
[2023-11-27 10:17] LABS: Body Fluid Clotted? NO CLOTS PRESENT; Body Fluid Color PINK
[2023-11-27 10:18] LABS: Body Fluid Appearance CLOUDY
[2023-11-27 11:16] LABS: Abnormal Cells Body Fluid 75 %; Lymphocytes Body Fluid 16 %; MESO/MACRO/MONO Body Fluid 7 %; Neutrophils Body Fluid 2 %
[2023-11-28 05:36] LABS: Labcorp Albumin, Body Fluid 3.2 g/dL (Not Estab.); Labcorp Glucose, Body Fluid 28 mg/dL (.); Labcorp LDH, Body Fluid 355 IU/L (.); Labcorp Total Prot, Body Fluid 4.8 g/dL (.)
== END 2023-11-27 09:21 | disposition home or self-care (01) ==
LOC: US 08:18
PROVIDERS: PCP Family Medicine; Referring Provider Internal Medicine Critical Care Medicine; Visit Provider Internal Medicine Critical Care Medicine
DX: J90 Pleural effusion, not elsewhere classified (principal)
CPT/HCPCS: 32555; 71045; 82040; 82945; 83615; 84157; 87070; 87075; 87102; 87116; 87205; 87206; 88184; 89051

== ENCOUNTER → 2023-12-02 13:53 | Outpatient (CLI) | payer BC, SELFPAY ==
[2023-12-02 19:36] LABS: C-Reactive Protein Quant 8.9 mg/dL (<1.0)
[2023-12-05 09:36] LABS: QuantiFERON Mitogen Value >10.00 IU/mL (.); QuantiFERON Nil Value 0.02 IU/mL (.); QuantiFERON TB Gold Plus Negative (Negative); QuantiFERON TB1 Ag Value 0.02 IU/mL (.); QuantiFERON TB2 Ag Value 0.03 IU/mL (.)
== END ==
PROVIDERS: PCP Family Medicine; Visit Provider Family Medicine
DX: R07.81 Pleurodynia (principal); J90 Pleural effusion, not elsewhere classified; R79.82 Elevated C-reactive protein (CRP); Z98.890 Other specified postprocedural states
CPT/HCPCS: 86140; 86480

== ENCOUNTER → 2023-12-12 12:25 | Outpatient (CLI) | payer BC, SELFPAY ==
--- NOTE | 2023-12-12 12:26 | DI.CT.S_ITS ---
PROCEDURE: CT CHEST WO CON INDICATIONS: F/U PLEURAL EFFUSION / RULE OUT MASS TECHNIQUE: Noncontrast 5 mm thick sections acquired from the pulmonary apices to the posterior costophrenic angles. 1 mm lung window, 5 mm thick coronal and sagittal and 7 mm axial MIP reformats were then acquired. For radiation dose reduction, the following was used: automated exposure control, adjustment of mA and/or kV according to patient size. COMPARISON: CT chest 11/19/2023. FINDINGS: Image quality: Diagnostic. Lower Neck: No enlarged lymph nodes. Thyroid: No thyroid nodules which require sonographic follow up, per consensus guidelines. Axillae: No enlarged lymph nodes. Chest Wall: Unremarkable. Bones: Exaggerated kyphosis of the thoracic spine. No acute vertebral body compression fracture.. Lungs and Pleura: No pneumothorax. Persistent moderate right pleural effusion with subjacent atelectasis. No suspicious pulmonary nodules identified. Heart: Heart size is normal. No pericardial effusion. Single-vessel coronary artery calcifications. Thoracic Vessels: The aorta and pulmonary arteries demonstrate normal size. Mediastinum and Donna: No enlarged lymph nodes. Esophagus: No wall thickening. No hiatal hernia. Upper Abdomen: Visualized upper abdomen solid organs and bowel loops appear normal. IMPRESSION: Compared to prior CT 11/19/2023, moderate right pleural effusion with subjacent atelectasis persists. Approved by: Julianne Schneider M.D.,Ph.D. on 12/13/2023 at 3:23
== END ==
PROVIDERS: PCP Family Medicine; Referring Provider Internal Medicine Critical Care Medicine; Visit Provider Internal Medicine Critical Care Medicine
DX: J90 Pleural effusion, not elsewhere classified (principal); J98.11 Atelectasis
CPT/HCPCS: 71250

== ENCOUNTER → 2024-01-03 12:51 | Outpatient (CLI) | payer BC, SELFPAY ==
--- NOTE | 2024-01-03 12:53 | DI.CT.S_ITS ---
PROCEDURE: CT CHEST W CON INDICATIONS: PLEURAL EFFUSION TECHNIQUE: After the administration of intravenous contrast, 5 mm thick sections acquired from the pulmonary apices to the posterior costophrenic angles. 1 mm axial lung, 5 mm thick coronal and sagittal reformats and 7 mm axial MIP were acquired. For radiation dose reduction, the following was used: automated exposure control, adjustment of mA and/or kV according to patient size. COMPARISON: [facility], CT, CT CHEST WO CON, 12/12/2023, 12:32. FINDINGS: Image quality: Diagnostic. Lower Neck: No enlarged lymph nodes. Thyroid: No thyroid nodules which require sonographic follow up, per consensus guidelines. Axillae: No enlarged lymph nodes. Chest Wall: Unremarkable. Bones: Mild degenerative changes. Exaggerated kyphosis. Lungs and Pleura: Stable moderate right pleural effusion with adjacent atelectasis. Atelectasis in the right middle lobe of the lung base is increased compared to prior and possible small pocket of loculated fluid anteriorly. Punctate 2 millimeter left lower lobe subpleural micro nodule is stable (3/236). Heart: Heart size is normal. No pericardial effusion. Thoracic Vessels: The aorta and pulmonary arteries demonstrate normal size. Mediastinum and Odnna: No enlarged lymph nodes. Esophagus: No wall thickening. No hiatal hernia. Upper Abdomen: Visualized upper abdomen solid organs and bowel loops appear normal. IMPRESSION: Persistent moderate right pleural effusion with adjacent atelectasis is stable compared to prior. Increased right middle lobe atelectasis with small pocket of loculated fluid anteriorly is new. Dictated by: Nir Courtney M.D. on 01/03/2024 at 16:25 Approved by: Nir Courtney M.D. on 01/03/2024 at 16:30
[2024-01-03 13:16] LABS: Estimated Glomerular Filt Rate > 60 mL/min (>60)
== END ==
PROVIDERS: Radiology Diagnostic Radiology; PCP Family Medicine; Referring Provider Internal Medicine Critical Care Medicine; Visit Provider Internal Medicine Critical Care Medicine
DX: J90 Pleural effusion, not elsewhere classified (principal); J98.11 Atelectasis
CPT/HCPCS: 36415; 71260; 82565; Q9967

== ENCOUNTER → 2024-02-12 17:02 | Outpatient (CLI) | payer BC, SELFPAY | PROVIDERS: PCP Family Medicine; Visit Provider Family Medicine | DX: L08.9 Local infection of the skin and subcutaneous tissue, unspecified (principal); T14.8XXA Other injury of unspecified body region, initial encounter | CPT/HCPCS: 87070; 87075; 87077; 87147; 87186; 87205 ==